=== PATIENT | female | born 1990 | race Caucasian/White ===

== ENCOUNTER 2022-11-04 07:42 | Inpatient (IN) ==
[2022-11-04] MEDS ORDERED: LIDOCAINE 1% LOCAL 20 ML VIAL INFIL PRN (09:15)
[2022-11-04] MEDS ORDERED: OXYTOCIN 30 UNITS/500 ML BAG IV PRN (09:15)
--- NOTE | 2022-11-04 09:16 | History & Physical Report ---
Date of Service November 04, 2022 Assessment & Plan (1) Encounter for induction of labor: Present on Admission?: Yes Plan Admit to L and D regular diet x 2 then NPO/IV Fluids Cervidil PV for cervical ripening ventura meds including epidural as the pt desires Admission and Anticipated Discharge Date Admission Date: November 04, 2022 History of Present Illness Chief Complaint: Pt 32 yr old IUP at 40 weeks 5 days induction of labor for postdates. Primary Care Provider: NO PCP Pt denies regular uterine contractions, vaginal bleeding, leaking of fluid per vagina etc. Reports good movement. Allergies Allergy/AdvReac Type Severity Reaction Status Date / Time No Known Allergies Allergy Unverified 11/04/22 08:00 Home Medications Medication Instructions Recorded Confirmed Type famotidine 20 mg tablet (Pepcid) 20 mg PO BID 11/04/22 11/04/22 History [id number] 1 mg 1 tab PO DAILY 11/04/22 11/04/22 History tablet Patient History Medical History No known health problems Surgical History No history of previous surgery Family History Mother Diabetes Social History Smoking Status: Never smoker Hx Alcohol Use: No Hx Substance Use: No Preferred Language: Swedish Communication Ability: Effective Visual Impairment: No Limitations [employer] Admin Required: No Beliefs That Will Affect Care: None marital status: Single Current Living Situation: Significant Other Current Living Situation Comment: Lives with boyfriend and his 2 children; Denis- 6 years Alli- 11 year current occupational status: employed current occupation: Insurance [employer] Other Information That Helps Us Care for You: No Feels Safe at Home: Yes Safety Concerns: Feels Safe At This Time Assistive Devices: Contacts Review of Systems All systems reviewed & are unremarkable except as noted in HPI & below as per Subjective / HPI as per Subjective / HPI as per Subjective / HPI Physical Exam Constitutional: WD/WN, vitals as above Skin: no rashes, warm and dry Genitourinary: no vaginal lesions, no adnexal mass Manual OB Exam: + cervical dilation fingertip, + cervical effacement 40% and + station high OB Exam Monitor Tracing: + external FHT monitor used, + category I and + normal FHT variability Results & Data Vital Signs (Past 12 Hours) Vital Signs Temp Pulse Resp BP 11/04/22 08:08 37.1 C 18 11/04/22 08:27 67 147/80 H 11/04/22 07:54 72 143/89 H Monitoring External Monitor 140s, Good variability, positive accelerations Tocodynamometer irregular uterine contractions Supervising Physician Co-Signing Physician Notes Dr. Kulwinder Edmond MD
[2022-11-04] MEDS ORDERED: DINOPROSTONE 10 MG INSERT PV ONE (09:30)
[2022-11-04 09:59] LABS: Hematocrit (blood only) 35.7 % (37.0-47.0); Hemoglobin 11.9 g/dl (12.0-16.0); Mean Corpuscular Hemoglobin 30.1 pg (25.0-34.0); Mean Corpuscular Hgb Conc 33.3 g/dL (32.0-36.0); Mean Corpuscular Volume 90.4 fL (80.0-100.0); Mean Platelet Volume 11.3 fL (9.4-12.4); Platelet Count 270 K/uL (130-400); RDW Coefficient of Variation 13.6 % (11.5-14.5); RDW Standard Deviation 44.9 fL (36.4-46.3); Red Blood Count 3.95 M/uL (4.20-5.40); White Blood Count 8.42 K/ul (4.8-10.8)
[2022-11-04] MEDS ORDERED: FAMOTIDINE 20 MG TAB PO ONE (11:26)
[2022-11-04] MEDS: FAMOTIDINE 20 MG TAB PO SCH (21:33)
[2022-11-04] MEDS ORDERED: BUTORPHANOL TARTRATE 1 MG/ML VIAL IV ONE (22:42)
[2022-11-05] MEDS ORDERED: BUTORPHANOL TARTRATE 1 MG/ML VIAL IV ONE (02:04)
[2022-11-05] MEDS: CALCIUM CARBONATE 500 MG CHEWABLE TAB PO PRN ×2 (02:20→17:04)
[2022-11-05] MEDS ORDERED: NALOXONE HCL 0.4 MG/1 ML VIAL/CARP IV PRN (09:10)
[2022-11-05] MEDS ORDERED: BUPIVACAINE 0.25% PF 30 ML VIAL EPI STA (09:10)
[2022-11-05] MEDS ORDERED: ROPIVACAINE 0.5% PF 5 MG/ML 20 ML VIAL EPI PRN (09:10)
[2022-11-05] MEDS ORDERED: SODIUM CHLORIDE 0.9% PF INJ 10 ML VIAL EPI PRN (09:10)
[2022-11-05] MEDS ORDERED: ePHEDrine sulfate 50 MG/ML AMP IV PRN (09:10)
[2022-11-05] MEDS ORDERED: diphenhydrAMINE 50 MG/ML VIAL IV PRN (09:10)
[2022-11-05] MEDS ORDERED: NALOXONE HCL 1 MG in SODIUM CHLORIDE 0.9% 1000ML 1,000 ML IV PRN (09:10)
[2022-11-05] MEDS ORDERED: NALBUPHINE HCL INJ 10 MG/ML AMP IV PRN (09:10)
[2022-11-05] MEDS ORDERED: SODIUM CHLORIDE 0.9% PF INJ 10 ML VIAL EPI STA (09:10)
[2022-11-05] MEDS ORDERED: fentaNYL citrate PF 100 MCG/2 ML VIAL EPI PRN (09:10)
[2022-11-05] MEDS ORDERED: BUPIVACAINE 0.25% PF 30 ML VIAL EPI PRN (09:10)
[2022-11-05] MEDS ORDERED: fentaNYL citrate PF 100 MCG/2 ML VIAL EPI STA (09:10)
[2022-11-05] MEDS ORDERED: LIDOCAINE 2%/EPINEPHRINE 1:200,000 20 ML PF EPI STA (09:10)
[2022-11-05] MEDS ORDERED: LIDOCAINE 2% MPF LOCAL 5 ML VIAL EPI PRN (09:10)
--- NOTE | 2022-11-05 09:10 | Anesthesiology Consultation ---
Date of Service November 05, 2022 Assessment & Plan (1) Encounter for pre-operative examination: Chart Review Chart Review: Patient NOT seen in Pre Admission Testing and Acceptable Risk for Labor Epidural Consults Requested none History Height/Weight Height: 5 ft 3 in Weight: 101.605 kg Allergies Allergy/AdvReac Type Severity Reaction Status Date / Time No Known Allergies Allergy Unverified 11/04/22 08:00 Medications Home Medications Medication Instructions Recorded Confirmed Last Taken famotidine 20 mg tablet (Pepcid) 20 mg PO BID 11/04/22 11/04/22 10/31/22 [id number] 1 mg 1 tab PO DAILY 11/04/22 11/04/22 11/03/22 tablet Active Medications Generic Name Dose Route Start Last Admin Trade Name Freq PRN Reason Stop Dose Admin Calcium Carbonate 1,500 mg 11/05/22 02:02 11/05/22 02:20 Calcium Carbonate 500 Mg Chewable Tab PO 12/05/22 02:01 1,500 mg Q8H PRN Administration Indigestion Famotidine 20 mg 11/04/22 21:00 11/04/22 21:33 Famotidine 20 Mg Tab PO 12/04/22 20:59 20 mg BID JULIET Administration Past Medical History Medical History No known health problems Past Family History Family History Mother Diabetes Past Surgical History Surgical History No history of previous surgery Social History Smoking Status: Never smoker Hx Alcohol Use: No Hx Substance Use: No substance use type: does not use Physical Exam Vital Signs Last Vital Signs Temp 98.4 F 11/05/22 07:08 Pulse 68 11/05/22 07:13 Resp 20 11/05/22 07:08 BP 137/79 11/05/22 07:13 Testing Laboratory Results 11/04/22 08:43 Blood Type AB Positive 11/04/22 08:42 Antibody Screen NEGATIVE 11/04/22 08:42
[2022-11-05] MEDS: LACTATED RINGER'S 1,000 ML IV PRN ×4 (09:11→17:23)
[2022-11-05] MEDS ORDERED: fentaNYL citrate PF 100 MCG/2 ML VIAL ONE (09:12)
[2022-11-05] MEDS ORDERED: BUPIVACAINE 0.25% PF 30 ML VIAL ONE (09:13)
[2022-11-05] MEDS ORDERED: fentaNYL 2MCG/ML ROPIVACAINE 1.25MG/ML 100 ML BAG EPI ONE (09:13)
[2022-11-05] MEDS ORDERED: SODIUM CHLORIDE 0.9% PF INJ 10 ML VIAL ONE (09:13)
[2022-11-05] MEDS ORDERED: LIDOCAINE 2%/EPINEPHRINE 1:200,000 20 ML PF ONE (09:13)
[2022-11-05] MEDS ORDERED: ePHEDrine sulfate 50 MG/ML AMP ONE (09:13)
[2022-11-05] MEDS: FAMOTIDINE 20 MG TAB PO SCH (10:47)
[2022-11-05] MEDS ORDERED: OXYTOCIN 30 UNITS/500 ML BAG IV SCH (11:00)
[2022-11-05] MEDS ORDERED: NURSING L&D Epidural Breakthrough Pain Update ONE (16:19)
[2022-11-05] MEDS: fentaNYL 2MCG/ML ROPIVACAINE 1.25MG/ML 100 ML BAG EPI PRN ×2 (16:57→22:38)
[2022-11-06] MEDS ORDERED: HYDROCORTISONE ACETATE 25 MG SUPP PR PRN (01:50)
[2022-11-06] MEDS ORDERED: DIPHTHERIA/TETANUS/PERTUSSIS Vaccine (Tdap, Age 7+yrs) 0.5mL SYR/VL IM ONE (01:50)
[2022-11-06] MEDS ORDERED: ACETAMINOPHEN 325 MG TAB PO PRN (01:50)
[2022-11-06] MEDS ORDERED: BENZOCAINE 20% SPRY 85 APPLN/85 GM CAN EXT PRN (01:50)
[2022-11-06] MEDS ORDERED: OXYTOCIN 30 UNITS/500 ML BAG IV PRN (01:50)
--- NOTE | 2022-11-06 01:50 | Post Operative Brief Note ---
Immediate Post Op Note v1 Date of Surgery November 06, 2022 I identified the patient and participated in the time-out.: Yes Procedure Pt fully dilated and pushing, placed in dorsal lithotomy position, prepped and draped in usual fashion, pushed for half hr, delivered alive viable female in INGA position, nuchal cord x1 , reduced, placed the on the mothers abdomen, bulb suctioned nose and mouth, cord clamped and cut by the FOB. placenta delivered spontaneously and complete. second degree vaginal lacerations noted, repaired with 2.0 Vicryl. 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
[2022-11-06] MEDS: IBUPROFEN 600 MG TAB PO PRN ×4 (03:17→20:32)
[2022-11-06] MEDS: PRENATAL VITAMIN 1 TAB PO SCH (08:53)
[2022-11-06] MEDS: DOCUSATE SODIUM 100 MG CAP PO SCH ×2 (08:53→20:32)
[2022-11-06] MEDS: FAMOTIDINE 20 MG TAB PO SCH ×2 (08:54→21:25)
--- NOTE | 2022-11-06 09:06 | Anesthesia Procedure Note ---
Date of Service November 06, 2022 Anesthesia Post Epidural Note Vital Signs Vital Signs: Temp Pulse Resp BP Pulse Ox O2 Del Method 36.8 C 74 16 121/78 98 Room Air 11/06/22 08:05 11/06/22 08:05 11/06/22 08:05 11/06/22 08:05 11/06/22 08:05 11/06/22 08:05 Pain Intensity Abdomen: Pain Intensity: 0 Episiotomy/Laceration: Pain Intensity: 0 Notes Mental Status: alert / awake / arousable Nausea / Vomiting: adequately controlled Pain: adequately controlled Airway Patency, RR, SpO2: stable & adequate BP & HR: stable & adequate Hydration State: stable & adequate Neuraxial Anesthesia: was administered and sensory block is resolving Anesthetic Complications: no major complications apparent and Pt Satisfied with anesthetic care Epidural: Removed without complications and With tip intact
[2022-11-07] MEDS: IBUPROFEN 600 MG TAB PO PRN ×2 (02:08→08:21)
--- NOTE | 2022-11-07 07:57 | Obstetrical Progress Note ---
Date of Service November 07, 2022 Assessment & Plan (1) Normal course: Doing well, continue routine care Discharge home today with follow-up in clinic in 3 and 6 weeks Medications sent to pharmacy Subjective Ambulation: ambulating normally Voiding: no voiding problems Passing Gas:: Yes Diet Tolerance:: regular diet Lochia:: Small Feeding Type:: breast feeding Current Pain Level(1-10): 1 Doing well, would like to go home today if possible Physical Exam Constitutional WD/WN, vitals as above Respiratory normal respiratory effort, lungs clear to auscultation Gastrointestinal (Abdomen) normal bowel sounds, soft, nontender, no hepatosplenomegaly Fundus below U Results & Data Vital Signs (Past 12 Hours) Vital Signs Temp Pulse Resp BP Pulse Ox O2 Del Method 11/06/22 23:39 36.8 C 78 18 125/73 97 Room Air 11/06/22 20:20 36.7 C 71 20 138/84 97 Room Air Laboratory Results Laboratory Results WBC 8.42 K/ul (4.8-10.8) 11/04/22 08:43 RBC 3.95 M/uL (4.20-5.40) L 11/04/22 08:43 Hgb 11.9 g/dl (12.0-16.0) L 11/04/22 08:43 Hct 35.7 % (37.0-47.0) L 11/04/22 08:43 MCV 90.4 fL (80.0-100.0) 11/04/22 08:43 MCH 30.1 pg (25.0-34.0) 11/04/22 08:43 MCHC 33.3 g/dL (32.0-36.0) 11/04/22 08:43 RDW Std Deviation 44.9 fL (36.4-46.3) 11/04/22 08:43 RDW Coeff of Hayes 13.6 % (11.5-14.5) 11/04/22 08:43 Plt Count 270 K/uL (130-400) 11/04/22 08:43 MPV 11.3 fL (9.4-12.4) 11/04/22 08:43 Blood Type AB Positive 11/04/22 08:42 Antibody Screen NEGATIVE 11/04/22 08:42
[2022-11-07] MEDS: PRENATAL VITAMIN 1 TAB PO SCH (08:21)
[2022-11-07] MEDS: DOCUSATE SODIUM 100 MG CAP PO SCH (08:21)
[2022-11-07 09:47] LABS: Hematocrit (blood only) 28.4 % (37.0-47.0); Hemoglobin 9.5 g/dl (12.0-16.0); Mean Corpuscular Hemoglobin 30.7 pg (25.0-34.0); Mean Corpuscular Hgb Conc 33.5 g/dL (32.0-36.0); Mean Corpuscular Volume 91.9 fL (80.0-100.0); Mean Platelet Volume 10.8 fL (9.4-12.4); Platelet Count 207 K/uL (130-400); RDW Coefficient of Variation 14.1 % (11.5-14.5); RDW Standard Deviation 46.5 fL (36.4-46.3); Red Blood Count 3.09 M/uL (4.20-5.40)
[2022-11-07] MEDS: FAMOTIDINE 20 MG TAB PO SCH ×2 (10:53→10:54)
[2022-11-07] MEDS ORDERED: bisacodyL 5 MG TABEC PO SCH (20:00)
[2022-11-08] MEDS ORDERED: bisacodyL 10 MG SUPP PR PRN (01:50)
== END 2022-11-07 12:50 | disposition home or self-care (01) | DRG 807 ==
LOC: 4S1 07:42 → 4E2 11-06 04:11